=== PATIENT | male | born 1985 | race Caucasian/White ===

== ENCOUNTER 2021-02-11 11:08 | Emergency (ER) | payer OTHER, SELFPAY ==
[2021-02-11 11:24] VITALS: BP 127/82; PULSE 124; RESP 20; TEMP 37; O2SAT 97; BMI 39.4
--- NOTE | 2021-02-11 13:38 | W.ED.SKABFB ---
HPI - Skin/Abscess/Foreign Bdy General: Chief complaint: Skin/Abscess/Foreign Body Stated complaint: ABSCESS ON BUTTOCKS/[facility] Time Seen by Provider: 02/11/21 11:38 History of Present Illness: HPI narrative: Patient is a 35-year-old male comes to the ED with an abscess on left buttock. [facility]. On Wednesday he felt a piece size tender nodule down on his left buttock near his anus. He says it was sore. On Wednesday and Wednesday he says the nodule got a lot bigger and was more painful. He says it hurts for him to sit. He also says when he has a bowel movement it causes pain as well. Patient states that he feels the abscess in his right by his rectum. Denies any fever, chills, nausea/vomiting. He has no past history of MRSA or staph infections. Denies any hemorrhoids or bloody stool. Associated symptoms: Deny chills, fever(s), nausea or vomiting Review of Systems Const: Denies: fever(s), chills or fatigue Eyes: Denies: change in vision or eye discomfort ENMT: Denies: throat pain, odynophagia, nasal discharge or nasal congestion Card: Denies: chest pain, palpitations, edema, swelling of feet/ankles, dyspnea on exertion or orthopnea Resp: Denies: dyspnea, productive cough or non-productive cough GI: Denies: abdominal pain, nausea, vomiting, diarrhea, constipation or hematochezia : Denies: flank pain, difficulty urinating, dysuria or hematuria Musc: Denies: neck pain, back pain or extremity swelling Skin/Breast: Reports: new lesions (Abscess on left buttock near anus.); Denies: rash Neuro: Denies: headache(s), numbness in extremities or weakness in extremities PFSH ED PFSH: Surgical History Encounter for vasectomy Family History Mother Hypertension Rheumatoid arthritis Hypothyroidism (acquired) Social History Smoking and tobacco status: current every day smoker Alcohol intake: current Alcohol intake frequency: 0-2 Drinks per Day Marital status: Number of children: 2 Current occupational status: disabled History of recent travel: No Physical Exam Const: COMMON NORMALS: no acute distress, patient oriented x3 and alert GENERAL APPEARANCE: cooperative and comfortable HENMT: COMMON NORMALS: normocephalic HEAD & SCALP: normocephalic MOUTH: Normal oral and palatal mucosa present THROAT: posterior oropharynx normal and uvula midline Neck/C-Spine: COMMON NORMALS: supple GENERAL: Yes normal visual inspection Resp: COMMON NORMALS: normal respiratory effort, No retractions, No use of accessory muscles and clear to auscultation bilaterally AUSCULTATION: clear to auscultation bilaterally Cardio: COMMON NORMALS: regular rate, regular rhythm, S1 normal heart sound present, S2 normal heart sound present, No gallops present (Cardio), No clicks present (Cardio), No murmurs present (Cardio) and Peripheral pulses 2+ throughout RATE: regular rate RHYTHM: regular rhythm HEART SOUNDS: S1 normal heart sound present and S2 normal heart sound present PERIPHERAL PULSES: Peripheral pulses 2+ throughout GI: COMMON NORMALS: Normal to inspection, nondistended, normoactive bowel sounds present, Soft to palpation, non-tender and no masses PALPATION: Yes Soft to palpation : COMMON NORMALS: Yes no CVA tenderness BLADDER/KIDNEY EXAM: Yes no CVA tenderness Back/Pelvis: COMMON NORMALS: no CVA tenderness Neuro: COMMON NORMALS: patient oriented x3 and moves all extremities SENSORIUM/ORIENTATION: Yes alert Skin: NARRATIVE SKIN EXAM: Patient has erythemic, warm, tender and non-fluctuant mass on left buttock close to the anus. Findings suggestive of possible perianal abscess. GENERAL SKIN EXAM: dry skin Procedures Abscess I/D Site: christiano-rectal (Left perianal abscess) Side (if applicable): left Local Anesthetic: lidocaine 1% and with epi Amount of anesthesia used (mL): 10 Technique: incised with #11 blade Amount of fluid expressed (mL): 10 (Purulent malodorous drainage) Irrigation: No Packing used?: none Course Consultations: Consultation #1: I contacted Dr. George and told him about patient case and the CT findings of a perianal abscess. Dr. George did not think he needed to go to the OR. He thought due to the small size of the abscess that he recommended I perform an I&D here in the ED and refer him to the clinic for follow-up. Vital Signs: Vital signs: Vital Signs Temperature 98.6 F 02/11/21 11:24 Pulse Rate 81 02/11/21 16:51 Respiratory Rate 16 02/11/21 16:51 Blood Pressure 128/71 02/11/21 16:51 Pulse Oximetry 94 02/11/21 16:51 MDM - Skin/Abscess/Foreign Bdy MDM Narrative: Medical decision making narrative: Patient is a 35-year-old male comes to the ED with an abscess on the left buttock near anus. Patient appears nontoxic and vitals are stable. He does have a abscess on left buttock near anus with some surrounding erythema and warmth. White blood cell count 14.4 and rest of CBC and CMP were unremarkable. CT of abdomen pelvis identified a 1 x 3 cm renal abscess. I contacted Dr. George about CT findings and he did not think patient needs to come to the OR. He recommended I perform an I&D in the ED and refer for outpatient surgery follow-up. I performed the abscess I&D and I used lidocaine 1% with epi as local. 11 blade was used to make an incision and approximately 10 mils of malodorous purulent drainage came out. Patient was given some IV Rocephin while here in the ED and discharged home on Bactrim. I placed an order with case management for patient be referred to general surgery for follow-up. I told patient that case management will contact him in the next several days to set up an appointment with general surgery. Return to ED precautions given. Patient understood agree with plan. Lab Data: Attestation: I reviewed the patient's lab results. Labs: Lab Results 02/11/21 02/11/21 Range/Units 14:10 14:10 WBC 14.4 H (4.0-10.0) 10^3/ uL RBC 5.22 (4.1-5.3) 10^6/u L Hgb 16.0 (11.7-16.6) g/dL Hct 48.3 (42.0-52.0) % MCV 92.5 (80-94) fL MCH 30.7 (28.0-34.0) pg MCHC 33.1 (30.0-36.0) g/dL RDW 12.6 (12.1-15.1) % Plt Count 260 (130-400) 10^3/c mm MPV 10.6 H (7.4-10.4) fL Neut % (Auto) 74.3 % Lymph % (Auto) 15.9 % Dawes % (Auto) 7.0 % Eos % (Auto) 1.9 % Baso % (Auto) 0.6 % Neut # (Auto) 10.66 H (1.8-7.7) 10^3/u L Lymph # (Auto) 2.3 (0.8-4.8) 10^3/u L Dawes # (Auto) 1.0 H (0.2-0.9) 10^3/u L Eos # (Auto) 0.3 (0.0-0.8) 10^3/u L Baso # (Auto) 0.1 (0.0-0.1) 10^3/u L Nucleated RBC % (a uto) 0 % Nucleated RBCs # 0.0 /100WBC Sodium 139 (136-145) mmol/L Potassium 5.0 (3.5-5.1) mmol/L Chloride 102 (98-107) mmol/L Carbon Dioxide 25 (22-29) mmol/L Anion Gap 17.0 (5-19) BUN 11 (6-20) mg/dL Creatinine 0.9 (0.7-1.2) mg/dL GFR Calculation 96.6 (90-130) mL/min Glucose 91 (65-115) mg/dL Calculated Osmolal ity 287 (285-295) mOsm/k g Calcium 9.7 (8.5-10.5) mg/dL Total Bilirubin 0.3 (0.15-1.2) mg/dL AST 17 (0-40) U/L ALT 26 (0-41) U/L Alkaline Phosphata se 76 (40-130) IU/L Total Protein 7.0 (6.6-8.7) g/dL Albumin 4.9 (3.5-5.2) g/dL Globulin 2.1 (1.3-4.6) g/dL Imaging Data^: CT Abd/Pel: Attestation: I personally reviewed and interpreted this imaging study as follows: Radiologist's impression: [address] [address] [address] Scan Report Signed Patient: Julian Bundy Unit #: [id number] : 1985 Age/Sex: 35 / M ADM Date: 02/11/21 Loc: ER Room/Bed: Attending Dr: Ordering Provider/Ordering MD: Kory Hannon Date of Service: 02/11/21 Procedure(s): CT pelvis w con* [id number] Accession Number(s): [id number] Report Number: [id number] WS: [id number] CT PELVIS WITH CONTRAST. HISTORY: Possible perianal abscess TECHNIQUE: Contiguous imaging is performed of the pelvis without contrast. Coronal and sagittal reformats are reviewed. All CT scans at [facility] use at least one of these dose optimization techniques: automated exposure control; mA and/or kV adjustment per patient size (includes targeted exams where dose is matched to clinical indication); or iterative reconstruction. DLP: 1314.68 mGy.cm Contrast: Omnipaque 300 95 mL IV. COMPARISON: None available. Normal appearance the soft tissues within the pelvis. No GI tract obstruction. Normal appendix. No adenopathy or fluid. There are a few small benign inguinal lymph nodes and obturator lymph nodes. Urinary bladder well distended. Single prostate gland calcification. Enhancing soft tissue nodule measuring 12 x 28 mm in the perianal soft tissues extending to the LEFT of midline. There is a small amount of adjacent inflammation. The center of this cavity is not fluid at this time but this is probably a developing abscess. CT/CT pelvis w con* [id number] IMPRESSION: Developing 12 x 28 mm LEFT perianal abscess. Dictated By: Helena Almonte DO Signed By: Helena Almonte DO Signed Date/Time: 02/11/21 1442 DD/ 1439 Discharge Plan Discharge Patient Disposition: Home Clinical Impression: Perianal abscess Condition: Stable Prescriptions: New Bactrim DS 800-160 mg tablet 1 tab PO BID 7 Days Qty: 14 RF: 0 No Action lisinopril 40 mg tablet 20 mg PO QAM RF: 0 ibuprofen 200 mg Tablet 600 mg PO PRN RF: 0 Discharge Orders: Discharge ED (Routine); Ordered 02/11/21 Ordered By: Kory Hannon Referrals: Jeffrey,Lyric R, CUSTOMER SERVICE CORRESPONDENCE CLERK [Primary Care Provider] - Discharge Diet: Regular Discharge Activity: Increase activity as tolerated Patient Instructions: Anorectal Abscess, Abscess Incision and Drainage (ED), Abscess (ED), Opioid Safety Activity Restrictions/Additional Instructions: Follow-up with medical provider as directed. fiscal services manager will contact you in the next several days to set up an appointment with the general surgeon to reevaluate abscess. Take medications as prescribed. Return to the ER or your medical provider if condition worsens. Please read and understand discharge instructions. Thank you for choosing [facility] for your healthcare needs today. Please realize this is an emergency room and that we are providing you with a medical screening exam and this may not be complete and all inclusive of all the testing and or work up that you may need to determine your ailment or severity of your illness. It is very important that you follow up as instructed or that you return to the Emergency Department should you have concerns or if your condition changes or worsens in any way. Coding Level of Care Code ED Marketing Sales Representative for [place] Fwd Exam Comprehensive
--- NOTE | 2021-02-11 13:55 | CT_ITS ---
WS: [id number] CT PELVIS WITH CONTRAST. HISTORY: Possible perianal abscess TECHNIQUE: Contiguous imaging is performed of the pelvis without contrast. Coronal and sagittal refor mats are reviewed. All CT scans at [facility] use at least one of these dose optimization techniques: automated exposure control; mA and/or kV adjustment per patient size (includes targeted exams where dose is matched to clinical indication); or iterative reconstruction. DLP: 1314.68 mGy.cm Contrast: Omnipaque 300 95 mL IV. COMPARISON: None available. Normal appearance the soft tissues within the pelvis. No GI tract obstruction. Normal appendix. No ad enopathy or fluid. There are a few small benign inguinal lymph nodes and obturator lymph nodes. Urina ry bladder well distended. Single prostate gland calcification. Enhancing soft tissue nodule measuring 12 x 28 mm in the perianal soft tissues extending to the LEFT of midline. There is a small amount of adjacent inflammation. The center of this cavity is not fluid at this time but this is probably a developing abscess. CT/CT pelvis w con* [id number] IMPRESSION: Developing 12 x 28 mm LEFT perianal abscess.
[2021-02-11 14:24] LABS: Basophils # 0.1 10^3/uL (0.0-0.1); Basophils % 0.6 %; Eosinophils # 0.3 10^3/uL (0.0-0.8); Eosinophils % 1.9 %; Hematocrit 48.3 % (42.0-52.0); Lymphocytes # 2.3 10^3/uL (0.8-4.8); Lymphocytes % 15.9 %; Mean Corpuscular HGB Conc 33.1 g/dL (30.0-36.0); Mean Corpuscular Hemoglobin 30.7 pg (28.0-34.0); Mean Corpuscular Volume 92.5 fL (80-94); Mean Platelet Volume 10.6 fL (7.4-10.4); Neutrophils # 10.66 10^3/uL (1.8-7.7); Neutrophils % 74.3 %; Nucleated Red Blood Cells % 0 %; Platelet Count 260 10^3/cmm (130-400); Red Blood Count 5.22 10^6/uL (4.1-5.3); Red Cell Distribution Width 12.6 % (12.1-15.1); White Blood Count 14.4 10^3/uL (4.0-10.0)
[2021-02-11] MEDS: iohexol 300 mg/mL 100 mL Btl IV (14:26)
[2021-02-11 14:43] LABS: Alanine Aminotransferase 26 U/L (0-41); Albumin Level 4.9 g/dL (3.5-5.2); Alkaline Phosphatase 76 IU/L (40-130); Aspartate Amino Transferase 17 U/L (0-40); Blood Urea Nitrogen 11 mg/dL (6-20); Calcium 9.7 mg/dL (8.5-10.5); Carbon Dioxide 25 mmol/L (22-29); Chloride 102 mmol/L (98-107); Globulin 2.1 g/dL (1.3-4.6); Glomerular Filtration Rate 96.6 mL/min (90-130); Glucose 91 mg/dL (65-115); Osmolality Calculated 287 mOsm/kg (285-295); Sodium 139 mmol/L (136-145); Total Bilirubin 0.3 mg/dL (0.15-1.2)
[2021-02-11 15:28] VITALS: RESP 18; O2SAT 98
[2021-02-11] MEDS: HYDROmorphone 1 mg/mL INJ 1 mL IVP (15:28)
[2021-02-11] MEDS: ondansetron 2 mg/ML SDV 2 mL 4 MG IVP (15:29)
[2021-02-11] MEDS: cefTRIAXone 1,000 MG in sodium chloride 0.9% (plus) 50 ML 100 MG IV (15:29)
[2021-02-11] MEDS: HYDROcodone-acetaminophen 7.5-325 mg Tablet 1 TAB PO (16:43)
[2021-02-11 16:51] VITALS: BP 128/71; PULSE 81; RESP 16; O2SAT 94
--- NOTE | 2021-02-12 07:35 | DCPLANNER ---
Addendum entered by Gabi Graham 02/12/21 09:21: Patient has [facility] insurance, patient case manager emailed patients information to [facility] so that the authorization process could be started. Original Note: store deli manager had message to schedule a follow up appointment with general surgery for perianal abscess. store deli manager emailed patients information to both Komal and Keila at [facility] General Surgery. Patients information will be printed and reviewed. Clinic will call patient with appointment information.
--- NOTE | 2021-02-20 08:00 | DCPLANNER ---
Patient has a follow up appointment scheduled for Wednesday, February 24, 2021 at 11:[address] George at general surgery. Clinic will call patient with appointment information.
--- NOTE | 2021-04-10 08:05 | DCPLANNER ---
Patient had a follow up appointment scheduled for 02.24.21 at general surgery - patient did attend appointment.
== END 2021-02-11 16:54 | disposition home or self-care (01) ==
PROVIDERS: Emergency Provider Physician Assistant; PCP Nurse Practitioner
DX: K61.0 Anal abscess (principal); F17.210 Nicotine dependence, cigarettes, uncomplicated
CPT/HCPCS: 46050; 72193; 80053; 85025; 96365; 96375; 99284; J0696; J1170; J2405; Q9967

== ENCOUNTER 2021-04-28 12:51 | Outpatient (CLI) | payer OTHER, SELFPAY ==
--- NOTE | 2021-04-28 12:56 | MR_ITS ---
WS: [id number] MRI LUMBAR SPINE NONCONTRAST HISTORY: LOW BACK PAIN COMPARISON: None available. TECHNIQUE: Sagittal and axial multisequence imaging is submitted. Mild straightening of normal lumbar lordosis. Reactive edema and chronic endplate changes at L4 and L 5. Degenerative disc disease is moderate at L4-5 and L5-S1. Conus terminates normally at L1-2 disc level. L1-L2: Normal. L2-L3: Normal. L3-L4: Mild ligamentum flavum disease and mild narrowing of the foramen of short pedicles. L4-L5: Diffuse moderate annular disc bulge with a focal central disc protrusion. Disc protrusion abut ting and encroaching upon the L5 nerve roots. There does appear to be a short focal RIGHT laminectomy defect. There is moderate disc and osteophyte encroachment into the foramen causing mild stenosis. L5-S1: Diffuse annular disc bulge with a central disc protrusion. Bilateral facet and ligamentum flav um arthritis. Moderate LEFT and mild RIGHT foraminal stenosis. Paravertebral soft tissues are normal. MR/MR lumbar spine wo con* [id number] IMPRESSION: 1. Moderate degenerative disc desiccation at L4-5 and L5-S1. 2. Focal central disc protrusion at L4-5 encroaching upon the L5 nerve roots b ilaterally. Mild bilateral foraminal stenosis at L4-5. 3. Moderate LEFT and mild RIGHT foraminal stenosis L5-S1 with a central disc p rotrusion.
== END 2021-04-28 12:52 | disposition home or self-care (01) ==
LOC: RADSHAW 12:53
PROVIDERS: PCP Nurse Practitioner; Visit Provider Nurse Practitioner
DX: M51.36 Other intervertebral disc degeneration, lumbar region (principal); M51.37 Other intervertebral disc degeneration, lumbosacral region; R60.0 Localized edema
CPT/HCPCS: 72148

== ENCOUNTER 2022-05-21 07:18 | Outpatient (CLI) | payer OTHER, SELFPAY ==
--- NOTE | 2022-05-21 07:35 | MR_ITS ---
WS: [id number] MRI LUMBAR SPINE NONCONTRAST HISTORY: LOW BACK PAIN COMPARISON: 04/28/2021 TECHNIQUE: Sagittal and axial multisequence imaging is submitted. Mild straightening of the normal lumbar lordosis. Progression of degenerative disc disease with marrow signal changes and increasing disc protrusions a t L4-5 and L5-S1 since 04/28/2021. Moderate disc space narrowing and desiccation at L4-5 and L5-S1. Fatty marrow replacement in the anand cent endplates of L4 and L5. No acute compression fractures in the lumbar spine. Conus terminates normally at L1-2 disc level. L1-L2: Normal. L2-L3: Normal. L3-L4: Mild ligamentum flavum hypertrophy and facet arthritis. Small amount of fluid in the facet torito nts. No significant stenosis centrally. There is very mild narrowing of the foramina bilaterally. May be due to short pedicles. L4-L5: Diffuse annular disc bulging with enlarging central disc protrusion causing significant deform ity of the ventral thecal sac. There is a concave deformity with posterior displacement of the nerve roots. CSF is being displaced. Moderate central and bilateral subarticular and foraminal stenosis. Mo st significant contact on the traversing L5 nerve roots. The extent of disc disease and stenosis has progressed. L5-S1: Mild diffuse annular disc bulge with a central disc protrusion. Degenerative disc disease and protrusion have increased since the prior study. Mild encroachment upon the LEFT S1 nerve root. Bilat eral moderate foraminal stenosis, LEFT greater than RIGHT. Similar to the prior study. MR/MR lumbar spine wo con* [id number] IMPRESSION: 1. Progression of degenerative disc disease and protrusions at L4-5 and L5-S1 since 04/28/2021. 2. Moderate central with bilateral subarticular recess and foraminal stenosis at L4-5. Central disc protrusion has increased in size and there is now signifi cant contact on the traversing L5 nerve roots. 3. Increase in central disc protrusion at L5-S1. Moderate bilateral foraminal stenosis, LEFT greater than RIGHT. Stenosis similar to the prior study. Mild en croachment upon the LEFT S1 nerve root.
== END 2022-05-21 07:19 | disposition home or self-care (01) ==
PROVIDERS: PCP Nurse Practitioner; Visit Provider Nurse Practitioner
DX: M51.27 Other intervertebral disc displacement, lumbosacral region (principal); M48.061 Spinal stenosis, lumbar region without neurogenic claudication
CPT/HCPCS: 72148

== ENCOUNTER → 2023-08-24 10:53 | Outpatient (BNVA) | payer OTHER, SELFPAY | PROVIDERS: PCP Nurse Practitioner; Referring Provider Nurse Practitioner; Visit Provider Surgery | DX: K60.3 Anal fistula (principal) | CPT/HCPCS: 99203 ==

== ENCOUNTER 2023-09-08 10:48 | Outpatient (CLI) | payer OTHER, SELFPAY ==
--- NOTE | 2023-09-08 10:52 | MR_ITS ---
WS: [id number] MRI LUMBAR SPINE NONCONTRAST TECHNIQUE: Sagittal T1, T2 and STIR imaging. Axial T1 and T2 imaging. CLINICAL INFORMATION: BACK PAIN COMPARISON: MRI 05/21/2022 FINDINGS: Mild lumbar curve. No acute compression. Disc bulging worse at L4-L5 and L5-S1 with endplate degenera tive changes. L1-L2: Normal. L2-L3: Mild facet arthropathy. Spinal canal and foramen are patent. L3-L4: No significant disc bulging. Mild facet arthropathy. Spinal canal and foramina are patent. L4-L5: Postoperative changes laminectomy defects with partial discectomy. Mild annular bulge with a t iny annular fissure. Slight effacement of the ventral thecal sac with slight narrowing of the subarti cular recess bilaterally. Mild facet arthropathy. Mild bilateral foraminal narrowing. L5-S1: Small central disc protrusion with slight impingement on the traversing S1 nerve roots bilater ally. Mild LEFT greater than RIGHT foraminal narrowing. Mild facet arthropathy. Visualized pelvic bony structures: Normal. Paravertebral soft tissues: Normal. IMPRESSION: 1. Central canal stenosis L4-5 has improved compared to previous with improved disc bulging or parti al discectomy. Mild residual central canal stenosis with slight narrowing of the subarticular recess. Evidence of prior laminectomy defects. 2. Shallow central disc protrusion L5-S1 slightly impinges the traversing LEFT greater than RIGHT S1 nerve roots stable compared to previous. 3. Mild bilateral L4-5 and LEFT L5-S1 foraminal narrowing. 4. No other significant interval changes.
== END 2023-09-08 10:49 | disposition home or self-care (01) ==
LOC: RAD 10:48
PROVIDERS: PCP Nurse Practitioner; Visit Provider Nurse Practitioner
DX: M48.061 Spinal stenosis, lumbar region without neurogenic claudication (principal); M51.27 Other intervertebral disc displacement, lumbosacral region
CPT/HCPCS: 72148

== ENCOUNTER 2023-11-01 05:50 | Day surgery (SDC) | payer OTHER, SELFPAY ==
[2023-11-01] VITALS (12 sets, daily range): BP systolic 128–164; BP diastolic 76–94; PULSE 80–105; RESP 16–18; TEMP 35.8–36.8; O2SAT 93–97; BMI 34.4
--- NOTE | 2023-11-01 06:41 | W.PM.OPSFHP ---
Same Day Surgery H&P Indication for Procedure/HPI DATE OF PROCEDURE: November 01, 2023 CHIEF COMPLAINT/INDICATIONFOR SURGICAL PROCEDURE: fistula in ano PREOP DIAGNOSIS: fistula in ano PLANNED PROCEDURE: Operation Date: 11/01/23 07:00 Proposed Procedures p [id number] exam under anesthesia possible fistulotomy K60.3(Not Applicable) - Amari Kennedy MD s possible fistulotomy(Not Applicable) - Amari Kennedy MD Medications/Allergies* Home Medications Medication Instructions Recorded Confirmed Type ibuprofen 200 mg tablet 600 mg PO PRN 02/11/21 10/29/23 History oxycodone-acetaminophen 10 mg-325 tab PO 08/24/23 08/24/23 History mg tablet Allergies/Adverse Reactions Allergy/AdvReac Type Severity Reaction Status Date / Time influenza virus vaccine qv Allergy Unknown Verified 10/29/23 09:53 live 2012- (2-49 yrs) [From FluMist] silver Allergy Unknown Verified 11/01/23 06:03 Pertinent History/Comorbid Conditions* Surgical History (Updated 02/24/21 @ 11:37 by Saul George MD) Previous back surgery 2016 H/O vasectomy History of surgical removal of pilonidal cyst Family History (Updated 10/11/20 @ 07:43 by Madiha Santos LPN) Rheumatoid arthritis Mother Hypothyroidism (acquired) Mother Hypertension Mother Social History Smoking and tobacco/nicotine status: current every day tobacco/nicotine user Alcohol intake: current Alcohol intake frequency: 0-2 Drinks per Day Marital status: Number of children: 2 Current occupational status: disabled Pertinent Exam Findings alert, oriented x 3 and clear to auscultation bilaterally Recommendations Surgery/Procedure today Coding Level of Care Code Acute Code for Chg Fwd
--- NOTE | 2023-11-01 06:44 | P.ANESASSM_ITS ---
Pre-Anesthetic Assessment Height/Weight: Height 1.78 m Weight 108.862 kg Temp Pulse Resp BP Pulse Ox O2 Del Method 98.3 F 94 18 128/79 97 Room Air 11/01/23 06:18 11/01/23 06:18 11/01/23 06:18 11/01/23 06:18 11/01/23 06:18 11/01/23 06:19 Preop Diagnosis: fistula in ano Operation Date: 11/01/23 07:00 Proposed Procedures p [id number] exam under anesthesia possible fistulotomy K60.3(Not Applicable) - Amari Kennedy MD s possible fistulotomy(Not Applicable) - Amari Kennedy MD Familial anesthetic complications: None Was Beta Hill taken within 24 hours: N/A Was Clonidine taken within 24 hours: N/A Last intake: Intake Last Liquid Date 10/31/23 Last Liquid Time 22:00 Last Solid Date 10/31/23 Last Solid Time 20:30 Social Tobacco and No alcohol Encouraged smoking cessation and reaching out to PCP for guidance Exam alert, oriented x 3, clear to auscultation bilaterally and regular rate & rhythm Airway Mallampati: Class IV Dentition: full Comments: Comments: Full platt Anesthetic Plan ASA status: 1 Anesthesia: General Risk of > 500 ml blood loss (7ml/kg in children): No Medications/Allergies Home Medications Medication Instructions Recorded Confirmed Last Taken Type ibuprofen 200 mg tablet 600 mg PO PRN 02/11/21 10/29/23 02/11/21 09:00 History oxycodone-acetaminophen 10 mg-325 tab PO 08/24/23 08/24/23 Unknown History mg tablet Allergies Allergy/AdvReac Type Severity Reaction Status Date / Time influenza virus vaccine qv Allergy Unknown Verified 10/29/23 09:53 live 2012-14 (2-49 yrs) [From FluMist] silver Allergy Unknown Verified 11/01/23 06:03 [facility] Anesthesia Surgical History Previous back surgery 2015 H/O vasectomy History of surgical removal of pilonidal cyst Family History Mother Hypertension Rheumatoid arthritis Hypothyroidism (acquired) Social History Smoking and tobacco/nicotine status: current every day tobacco/nicotine user Alcohol intake: current Alcohol intake frequency: 0-2 Drinks per Day Marital status: Number of children: 2 Current occupational status: disabled Data Anesthesia Cardiac Studies: No Data to Display
[2023-11-01] MEDS: midazolam 1 mg/mL INJ 2 mL 2 MG IVP (06:45)
[2023-11-01] MEDS: albuterol 2.5 mg/3 mL Neb INHALATION (06:46)
[2023-11-01] MEDS: sodium chloride 0.9% 1,000 ML 30 ML IV (06:57)
[2023-11-01] MEDS: ceFAZolin 2,000 MG in sodium chloride 0.9% (plus) 50 ML 100 MG IV (07:10)
[2023-11-01] MEDS: lidocaine-epi 1% 20 mL INJ INJECTION (07:40)
[2023-11-01] MEDS: BUPivacaine 0.25% INJ 30 mL INJECTION (07:40)
--- NOTE | 2023-11-01 07:53 | PM.OP ---
Operative Report Date of procedure: November 01, 2023 Pre-op diagnosis: Possible fistula in ano Post-op diagnosis: Small perianal fluid collection Post-op findings: No evidence of a fistula in ano was noted, there was a very small perianal fluid collection surrounded by scar tissue in the area of previous incision and drainage. No active purulence. Previous abscess cavity was irrigated with peroxide to evaluate for possible fistula tracts, no evidence of fistula tracts were noted Procedure done: Exam under anesthesia, incision and drainage of perianal fluid collection. Specimens removed/disposition: None Surgeon: Amari Kennedy MD Playroom Attendant: KITTY OR STaff Estimated blood loss: 5 Complications: none Brief History: This is a 38-year-old male with history of recurrent perianal abscess with chronic drainage who presented to my clinic for evaluation, chronic drainage was suspicious for possibility of fistula in ano, we decided to proceed for exam under anesthesia and possible fistulotomy. All risks and benefits were discussed and documented in my preop note. Procedure: Patient was brought into the OR, general esthesia was given. Patient was placed in the lithotomy position, the perianal region was prepped and draped in the usual sterile fashion. Timeout was conducted. Digital rectal examination was done showing no evidence of pathology. Hill-Barnett retractor was inserted and the anal canal and the mucosa was evaluated no apparent pathology was noted. I then proceeded to do an examination on the perianal skin, on the left anterior region there was a 1 cm area of induration in the subcutaneous tissue. A field block with local anesthesia was done around the Johnathan anal margin and surrounding this area of induration. The area of induration corresponded to previous incision and drainage location. There was no superficial sinus tract at this moment. I then proceeded to make a 0.5 cm incision with an 11 blade overlying the area of induration, hemostat was used to explore the wound, no evidence of purulence was noted minimal amount of serosanguineous drainage was obtained, hemostat was used to break the scar tissue in the area of exploration, I then proceeded to evaluate the cavity for possibility of fistula tracts, no fistula tract were noted with the probe, I then inserted the right side into the cavity and a Hill-Barnett retractor into the anal canal to evaluate for possibility of fistula in ano, no leakage of the peroxide into the anal canal was noted. At this point I proceeded to pack the wound with 0.5 cm iodoform packing and a sterile dressing was applied. Patient tolerated well the procedure all counts were correct the end of the procedure. Patient was transferred to PACU in stable condition.
[2023-11-01] MEDS: fentaNYL 50 mcg/mL INJ 2mL IVP (08:14)
[2023-11-01] MEDS: HYDROcodone-acetaminophen 7.5-325 mg Tablet 1 TAB PO (09:02)
--- NOTE | 2023-11-01 09:10 | ANE.PACU2 ---
Inpatient post-anesthesia follow up: Airway intact: Yes Vital signs: Temperature 96.5 F Pulse Rate 80 Respiratory Rate 16 Blood Pressure 148/90 Pulse Oximetry 94 Oxygen Delivery Me thod Room Air Oxygen Flow Rate Fraction of Inspir ed Oxygen Hydration adequate: Yes Nausea and vomiting: No Pain level: 1 Mental status: Baseline
== END 2023-11-01 09:10 | disposition home or self-care (01) ==
PROVIDERS: PCP Nurse Practitioner; Visit Provider Surgery
PROC: (CPT 46050; principal; 2023-11-01 07:00)
DX: K61.0 Anal abscess (principal); Z72.0 Tobacco use
CPT/HCPCS: 46050; J0690; J1100; J2250; J2405; J2704; J3010; J3490; J7030; J7613

== ENCOUNTER → 2023-11-16 11:36 | Outpatient (BNVA) | payer OTHER, SELFPAY | PROVIDERS: PCP Nurse Practitioner; Visit Provider Surgery | DX: Z98.890 Other specified postprocedural states (principal) | CPT/HCPCS: 99024 ==